=== PATIENT | female | born 1990 | race African-American/Black ===

== ENCOUNTER 2019-01-20 15:11 | Emergency (ER) | payer OTHER ==
[~2019-01-20] VITALS: Ht 160 cm; Wt 72.6 kg
[2019-01-20] MEDS ORDERED: NORFLEX100 MG PO (17:07)
[2019-01-20] MEDS ORDERED: IBUPROFEN 800800 M1 PO (17:07)
[2019-01-20 17:32] VITALS: BP 111/78
== END 2019-01-20 17:33 | disposition home or self-care (01) ==
LOC: ER 15:11
DX: S29.012A Strain of muscle and tendon of back wall of thorax, initial encounter (principal); F41.9 Anxiety disorder, unspecified; F32.9 Major depressive disorder, single episode, unspecified; Z87.891 Personal history of nicotine dependence; Z88.0 Allergy status to penicillin; V49.9XXA Car occupant (driver) (passenger) injured in unspecified traffic accident, initial encounter; Y93.89 Activity, other specified; Y92.89 Other specified places as the place of occurrence of the external cause; Y99.8 Other external cause status